=== PATIENT | male | born 1975 | race Caucasian/White ===

== ENCOUNTER 2021-12-10 13:31 | Emergency (ER) | payer OTHER ==
[~2021-12-10] VITALS: Ht 182 cm; Wt 108.0 kg
[2021-12-10 13:47] LABS: BILIRUBIN,URINE NEGATIVE (NEGATIVE); CLARITY,URINE CLEAR; COLOR,URINE YELLOW; GLUCOSE, URINE (UA) NEGATIVE (NEGATIVE); KETONES,URINE NEGATIVE (NEGATIVE); LEUKOCYTE ESTERASE ,URINE NEGATIVE (NEGATIVE); NITRITE,URINE NEGATIVE (NEGATIVE); PROTEIN,URINE NEGATIVE (NEGATIVE)
[2021-12-10 14:01] LABS: BACTERIA,URINE NEGATIVE /HPF
[2021-12-10 14:02] LABS: AMORPHOUS SEDIMENT,UR MOD AMOR PHOSPHATE /LPF
[2021-12-10 14:10] LABS: BASOPHILS # (AUTO) 0.1 10^3/uL (0.0-0.1); BASOPHILS % (AUTO) 1 % (0-10); EOSINOPHILS # (AUTO) 0.2 10^3/uL (0.0-0.3); EOSINOPHILS % (AUTO) 3 % (0-10); HEMATOCRIT 41 % (40-54); HEMOGLOBIN 13.7 g/dL (13.3-17.7); LYMPHOCYTES # (AUTO) 2.1 10^3/uL (1.0-4.0); LYMPHOCYTES % (AUTO) 26 % (12-44); MEAN CORPUSCULAR HEMOGLOBIN 30 pg (25-34); MEAN CORPUSCULAR HGB CONC 34 g/dL (32-36); MEAN CORPUSCULAR VOLUME 90 fL (80-99); MEAN PLATELET VOLUME 9.4 fL (9.0-12.2); MONOCYTES # (AUTO) 0.8 10^3/uL (0.0-1.0); MONOCYTES % (AUTO) 10 % (0-12); NEUTROPHILS # (AUTO) 4.9 10^3/uL (1.8-7.8); NEUTROPHILS % (AUTO) 60 % (42-75); PLATELET COUNT 342 10^3/uL (130-400); WHITE BLOOD COUNT 8.1 10^3/uL (4.3-11.0)
[2021-12-10] MEDS ORDERED: KETOROLAC 30 MG/ML VIAL IVP ONE (14:15)
[2021-12-10 14:16] LABS: ALBUMIN 4.3 GM/DL (3.2-4.5); POTASSIUM 4.3 MMOL/L (3.6-5.0)
[2021-12-10 14:17] LABS: CALCIUM 9.2 MG/DL (8.5-10.1)
[2021-12-10 14:18] LABS: TOTAL PROTEIN 6.9 GM/DL (6.4-8.2)
[2021-12-10 14:20] LABS: BILIRUBIN,TOTAL 0.4 MG/DL (0.1-1.0)
[2021-12-10 14:22] LABS: CREATININE SERUM 1.5 MG/DL (0.60-1.30)
--- NOTE | 2021-12-10 14:39 | Diagnostic Imaging Report ---
EXAMINATION: CT abdomen and pelvis without contrast. TECHNIQUE: Multiple contiguous axial images were obtained through the abdomen and pelvis without the use of intravenous contrast. All CT scans use one or more of the following dose optimizing techniques: automated exposure control, MA and/or KvP adjustment based on patient size and exam type or iterative reconstruction. HISTORY: Right lower abdominal pain. COMPARISON: None available. FINDINGS: Limited views of the lower thorax are unremarkable. The liver is normal without focal lesion. There is no biliary ductal dilation. Gallbladder is normal. Pancreas is normal. Spleen is normal. Adrenal glands are normal. There is a 3 mm distal right ureteral stone and a 3 mm right ureterovesical junction stone. There is mild right-sided hydroureteronephrosis. No suspicious renal lesions. Urinary bladder is normal. Bowel is normal in caliber without obstruction or inflammation. There is diverticulosis without diverticulitis. No free fluid or air. No abdominal or pelvic lymphadenopathy. Aorta is normal in caliber without aneurysm. There are no suspicious osseus lesions. Bilateral L5 pars defects. IMPRESSION: 1. There are two stones in the right ureter both measuring 3 mm the most distal left ureterovesical junction and the other stone in the distal third. There is mild right-sided hydroureteronephrosis. Dictated by: Dictated on workstation # [id number]
--- NOTE | 2021-12-10 14:53 | ED Abdominal Pain ---
General Chief Complaint: Abdominal/GI Problems Stated Complaint: RIGHT SIDE ABD PAIN Nursing Triage Note: WOKE UP AT 2300 LAST NIGHT WITH SEVERE RIGHT LOWER ABD PAIN. AFTER TAKING ALEEVE AND TYLENOL IT WENT AWAY. TODAY STARTED HAVING THE SAME PAIN. STATES AFTER HE PEES IT FEELS LIKE HE NEEDS TO GO AGAIN. Source of Information: Patient Exam Limitations: No Limitations Allergies and Home Medications Allergies Coded Allergies: No Known Drug Allergies (Unverified , 12/10/21) Past Tlwmstg-Cnqskh-Dhtwma Hx Patient Social History Tobacco Use?: No Substance use?: No Alcohol Use?: No Physical Exam Vital Signs Vital Signs - First Documented 12/10/21 13:38 Temp 36.9 Pulse 54 Resp 16 B/P (MAP) 148/84 (105) Pulse Ox 97 O2 Delivery Room Air Capillary Refill : Less Than 3 Seconds Height/Weight/BMI Height: '" Weight: lbs. oz. kg; 32.00 BMI Method: Progress/Results/Core Measures Results/Orders Lab Results Laboratory Tests Test 12/10/21 13:38 12/10/21 14:00 Range/Units Urine Color YELLOW Urine Clarity CLEAR Urine pH 7.0 5-9 Urine Specific [place] 1.015 L 1.016-1.022 Urine Protein NEGATIVE NEGATIVE Urine Glucose (UA) NEGATIVE NEGATIVE Urine Ketones NEGATIVE NEGATIVE Urine Nitrite NEGATIVE NEGATIVE Urine Bilirubin NEGATIVE NEGATIVE Urine Urobilinogen 0.2 < = 1.0 MG/DL Urine Leukocyte Esterase NEGATIVE NEGATIVE Urine RBC (Auto) 1+ H NEGATIVE Urine RBC 10-25 H /HPF Urine WBC NONE /HPF Urine Crystals PRESENT H /LPF Urine Amorphous Sediment MOD SERGIO PHOSPHATE H /LPF Urine Bacteria NEGATIVE /HPF Urine Casts NONE /LPF Urine Mucus NEGATIVE /LPF Urine Culture Indicated NO White Blood Count 8.1 4.3-11.0 10^3/uL Red Blood Count 4.51 4.30-5.52 10^6/uL Hemoglobin 13.7 13.3-17.7 g/dL Hematocrit 41 40-54 % Mean Corpuscular Volume 90 80-99 fL Mean Corpuscular Hemoglobin 30 25-34 pg Mean Corpuscular Hemoglobin Concent 34 32-36 g/dL Red Cell Distribution Width 13.1 10.0-14.5 % Platelet Count 342 130-400 10^3/uL Mean Platelet Volume 9.4 9.0-12.2 fL Immature Granulocyte % (Auto) 0 % Neutrophils (%) (Auto) 60 42-75 % Lymphocytes (%) (Auto) 26 12-44 % Monocytes (%) (Auto) 10 0-12 % Eosinophils (%) (Auto) 3 0-10 % Basophils (%) (Auto) 1 0-10 % Neutrophils # (Auto) 4.9 1.8-7.8 10^3/uL Lymphocytes # (Auto) 2.1 1.0-4.0 10^3/uL Monocytes # (Auto) 0.8 0.0-1.0 10^3/uL Eosinophils # (Auto) 0.2 0.0-0.3 10^3/uL Basophils # (Auto) 0.1 0.0-0.1 10^3/uL Immature Granulocyte # (Auto) 0.0 0.0-0.1 10^3/uL Sodium Level 139 135-145 MMOL/L Potassium Level 4.3 3.6-5.0 MMOL/L Chloride Level 108 H 98-107 MMOL/L Carbon Dioxide Level 23 21-32 MMOL/L Anion Gap 8 5-14 MMOL/L Blood Urea Nitrogen 21 H 7-18 MG/DL Creatinine 1.50 H 0.60-1.30 MG/DL Estimat Glomerular Filtration Rate 57 BUN/Creatinine Ratio 14 Glucose Level 109 H 70-105 MG/DL Calcium Level 9.2 8.5-10.1 MG/DL Corrected Calcium 9.0 8.5-10.1 MG/DL Total Bilirubin 0.4 0.1-1.0 MG/DL Aspartate Amino Transf (AST/SGOT) 19 5-34 U/L Alanine Aminotransferase (ALT/SGPT) 28 0-55 U/L Alkaline Phosphatase 52 40-136 U/L Total Protein 6.9 6.4-8.2 GM/DL Albumin 4.3 3.2-4.5 GM/DL My Orders Orders - DEMETRIA PALUMBO [employer] OPERATIONS ENGINEER Ua Culture If Indicated (12/10/21 13:33) Cbc With Automated Diff (12/10/21 14:04) Comprehensive Metabolic Panel (12/10/21 14:04) Ed Iv/Invasive Line Start (12/10/21 14:04) Ketorolac Injection (Toradol Injection) (12/10/21 14:15) Ct Abd/Pelvis Wo(Kidney Stone) (12/10/21 14:04) Medications Given in ED Current Medications Medications Dose Ordered Sig/Marlin Route Start Time Stop Time Status Last Admin Dose Admin Ketorolac Tromethamine 30 mg ONCE ONCE IVP 12/10/21 14:15 12/10/21 14:16 DC 12/10/21 14:14 30 MG Vital Signs/I&O 12/10/21 13:38 Temp 36.9 Pulse 54 Resp 16 B/P (MAP) 148/84 (105) Pulse Ox 97 O2 Delivery Room Air Blood Pressure Mean: 105 Departure Impression Primary Impression: Ureteral stone with hydronephrosis Disposition: HOME, SELF-CARE Condition: Improved Departure-Patient Inst. Decision time for Depature: 14:53 Referrals: NO,LOCAL PHYSICIAN (PCP/Family) Primary Care Physician Patient Instructions: Hydronephrosis, Adult (DC), Kidney Stones (DC) Add. Discharge Instructions: Plan: 1. Follow-up with Cely Nixon urology at [address] [facility], [place]. [address] at 10:30 in the morning tomorrow. 2. Take Flomax once a day in the evening, take first dose tonight this will help passing of the stone. 3. Drink plenty of fluids to help the stone pass. 4. You can take Toradol 10 mg by mouth every 6 hours as needed for pain, do not take more than directed as this can worsen your kidney function. 5. Strain all of your urine to monitor for passing of the stone, supplies provided prior to discharge. 6. Return to the ER if you have any new, concerning, worsening symptoms All discharge instructions reviewed with patient and/or family. Voiced understanding. Scripts Tamsulosin HCl (Flomax) 0.4 Mg Cap 0.4 MG PO DAILY for 10 Days, #10 CAP 0 Refills Prov: DEMETRIA PALUMBO [employer]PER[employer] ENGINEER 12/10/21 Ketorolac Tromethamine (Ketorolac Tromethamine) 10 Mg Tablet 10 MG PO Q6H PRN for PAIN-SEVERE (8-10), #10 TAB 0 Refills Prov: DEMETRIA PALUMBO [employer] OPERATIONS ENGINEER 12/10/21 DEMETRIA PALUMBO [employer] OPERATIONS ENGINEER Dec 10, 2021 14:53
[2021-12-10] MEDS ORDERED: TMSL.4C PO (14:56)
[2021-12-10] MEDS ORDERED: KETO10TA PO (14:56)
[2021-12-10 15:06] VITALS: BP 118/78
== END 2021-12-10 15:06 | disposition home or self-care (01) ==
LOC: ER 13:34
DX: N13.2 Hydronephrosis with renal and ureteral calculous obstruction (principal); Z28.310 Unvaccinated for COVID-19
CPT/HCPCS: 36415; 74176; 80053; 81000; 85025; 96374

== ENCOUNTER → 2022-03-24 | Outpatient (CLI) | payer OTHER ==
[~2022-03-24] VITALS: Ht 185.5 cm; Wt 108.0 kg
[~2022-03-24] MED LIST: KETO10TA PO; TMSL.4C PO
== END | disposition home or self-care (01) ==
LOC: PREOP 05:31
PROVIDERS: ATTEND Surgery
DX: Z01.818 Encounter for other preprocedural examination (principal)

== ENCOUNTER 2022-03-31 11:04 | Day surgery (SDC) | payer OTHER ==
[~2022-03-31] VITALS: Ht 185.4 cm; Wt 108.0 kg
[2022-03-31] MEDS ORDERED: LACTATED RINGERS 1,000 ML IV STA (11:05)
--- NOTE | 2022-03-31 11:11 | Progress Note-Pre Operative ---
Pre-Operative Progress Note Date of Available H&P: Mar 16, 2022 Date H&P Reviewed: Mar 31, 2022 Time H&P Reviewed: 11:11 History & Physical: H&P Reviewed, Patient Examed, No changes noted Pre-Operative Diagnosis: Screening colonoscopy and family hx of colon cancer FERCHO ALVARENGA DO Mar 31, 2022 11:11
[2022-03-31 11:25] VITALS: BP 134/99
[2022-03-31] MEDS ORDERED: MIDAZOLAM 2 MG/2 ML (VERSED) VIAL ONE (11:31)
[2022-03-31] MEDS ORDERED: PROPOFOL INJECTION 50 ML IV ONE (11:31)
--- NOTE | 2022-03-31 12:08 | Discharge Inst-Simple/Standard ---
Discharge Inst-Standard Patient Instructions/Follow Up Plan of Care/Instructions/FU: F/u colonoscopy in 5 years Activity as Tolerated: Yes Discharge Diet: Regular Diet (eat high fiber diet), Other Diet (high fiber) FERCHO ALVARENGA DO Mar 31, 2022 12:08
[2022-03-31 12:12] VITALS: BP 98/56
[2022-03-31 12:17] VITALS: BP 103/58
[2022-03-31 12:22] VITALS: BP 121/74
[2022-03-31 12:25] VITALS: BP 121/74
--- NOTE | 2022-03-31 12:46 | Anesthesia-General Post-Op ---
MAC Patient Condition Mental Status/LOC: Same as Preop Cardiovascular: Satisfactory Nausea/Vomiting: Absent Respiratory: Satisfactory Pain: Controlled Complications: Absent Post Op Complications Complications None Follow Up Care/Instructions Patient Instructions None needed. Anesthesiology Discharge Order Discharge Order Patient is doing well, no complaints, stable vital signs, no apparent adverse anesthesia problems. No complications reported per nursing. RAHEEL LINTON CRNA Mar 31, 2022 12:46
[2022-03-31 12:49] VITALS: BP 121/74
--- NOTE | 2022-03-31 18:58 | OPERATIVE REPORT ---
DATE OF SERVICE: 03/31/2022 PREOPERATIVE DIAGNOSIS: Family history of colon cancer. POSTOPERATIVE DIAGNOSIS: Diverticulosis. PROCEDURE: Colonoscopy. SURGEON: Fercho River DO ANESTHESIA: Per LANDSCAPE NURSERYMAN. ESTIMATED BLOOD LOSS: None. COMPLICATIONS: None. INDICATIONS: The patient is a 46-year-old male, needing screening colonoscopy. He understands the risks and benefits of the procedure and wished to proceed. Consent was signed in chart. DESCRIPTION OF PROCEDURE: The patient was taken to the endoscopy suite, placed in left lateral recumbent position. Timeout was performed. Digital rectal exam was performed. No palpable polyps, masses or ulcerations. Scope was inserted into the rectum advanced all the way to the cecum with minimal difficulty. Prep was adequate. Scope was slowly retracted back. No polyps, masses or ulcerations in the cecum, ascending, transverse, descending and sigmoid colon. Throughout the majority of the colon, diverticulosis was present. Scope, once in the rectum, was retroflexed noting no other pathology. Scope was returned to its normal position and slowly withdrawn until completely removed. The patient tolerated the procedure well without complications, stable to recovery room in stable condition. RECOMMENDATIONS: The patient will need repeat colonoscopy in five years due to family history. We would recommend high fiber diet due to diverticulosis. Any issues before that will be seen at that time. Job ID: [id number] DocumentID: [id number] Dictated Date: 03/31/2022 12:09:21 [employer] Internship Date: 03/31/2022 18:56:00 Dictated By: FERCHO RIVER DO
== END 2022-03-31 12:55 | disposition home or self-care (01) ==
LOC: ENDO 11:04
PROVIDERS: ATTEND Surgery
DX: Z12.11 Encounter for screening for malignant neoplasm of colon (principal); K57.30 Diverticulosis of large intestine without perforation or abscess without bleeding; Z80.0 Family history of malignant neoplasm of digestive organs; Z28.310 Unvaccinated for COVID-19